=== PATIENT | female | born 1980 | race Caucasian/White ===

== ENCOUNTER 2019-07-31 05:23 | Day surgery (SDC) | payer MEDICAID ==
[2019-07-28 13:05] LABS: BASOPHILS # (AUTO) 0.1 X10'3 (0-0.2); BASOPHILS % (AUTO) 1.3 % (0-1); EOSINOPHILS # (AUTO) 0.2 X10'3 (0-0.9); EOSINOPHILS % (AUTO) 2.5 % (0-6); LYMPHOCYTES # (AUTO) 2.6 X10'3 (1.1-4.8); LYMPHOCYTES % (AUTO) 30.7 % (21-51); MEAN CORPUSCULAR HEMOGLOBIN 30.6 PG (27.0-31.0); MEAN CORPUSCULAR HGB CONC 34.1 g/dL (33.0-36.5); MEAN CORPUSCULAR VOLUME 89.9 FL (78-98); MEAN PLATELET VOLUME 8.6 FL (7.4-10.4); MONOCYTES # (AUTO) 0.8 X10'3 (0-0.9); MONOCYTES % (AUTO) 9.4 % (2-12); NEUTROPHILS # (AUTO) 4.8 X10'3 (1.8-7.7); NEUTROPHILS % (AUTO) 56.1 % (42-75); PRE OP HEMATOCRIT 43.7 % (35.0-45.0); PRE OP HEMOGLOBIN 14.9 g/dL (12.0-16.0); PRE OP PLATELET COUNT 321 X10'3 (140-440); RED BLOOD COUNT 4.86 X10'6 (4.20-5.60)
[2019-07-28 13:13] LABS: CLARITY,URINE CLEAR (Clear); COLOR,URINE YELLOW (Yellow); GLUCOSE, URINE NEGATIVE (Neg); KETONES,URINE NEGATIVE (Neg); LEUKOCYTE ESTERASE ,URINE NEGATIVE (Neg); NITRITES, URINE NEGATIVE (Neg); OCCULT BLOOD,URINE NEGATIVE (Neg); PROTEIN,URINE NEGATIVE (Neg); UROBILINOGEN,URINE 0.2 E.U/dL (0.2-1.0)
[2019-07-28 13:15] LABS: UA COLLECTION TYPE CLN CATCH MIDSTREAM
[2019-07-28 13:19] LABS: ALBUMIN/GLOBULIN RATIO 1.1 (1.1-1.5); ALKALINE PHOSPHATASE 75 IU/L (46-116); BLOOD UREA NITROGEN 10 MG/DL (7-18); BUN/CREATININE RATIO 12.8 (6.6-38.0); CALCIUM 9.4 MG/DL (8.5-10.1); CHLORIDE 105 MMOL/L (99-107); CREATININE 0.78 MG/DL (0.40-0.90); PRE OP ALT 25 U/L (30-65); PRE OP ANION GAP 6 (8-16); PRE OP AST 18 U/L (10-37); PRE OP BILIRUB, TOTAL 0.4 MG/DL (0.0-1.0); PRE OP GLUCOSE 85 MG/DL (70-104); PRE OP POTASSIUM 3.9 MMOL/L (3.4-5.1); PRE OP SODIUM 141 MMOL/L (135-145); TOTAL CARBON DIOXIDE 30.1 MMOL/L (24-32); TOTAL PROTEIN 7.7 G/DL (6.4-8.2); eGFR 81 ML/MIN
[2019-07-28 13:26] LABS: HCG SERUM QL NEGATIVE
[2019-07-31] VITALS (7 sets, daily range): BP systolic 102–132; BP diastolic 49–74
[~2019-07-31] VITALS: Ht 172.7 cm; Wt 85.7 kg
[~2019-07-31 05:23] MED LIST: NO HOME MEDS; ringers solution, lacted 1,000 ML IV SCH
[2019-07-31] MEDS ORDERED: famotidine 10mg tablet PO ONE (05:30)
[2019-07-31] MEDS ORDERED: LIDOcaine 1% (10mg/ml) 2ml vial ONE (05:59)
[2019-07-31] MEDS: vancomycin inj 1,500 MG in normal saline 300ml IV soln IV ONE ×2 (06:19→06:31)
[2019-07-31] MEDS ORDERED: GENTAMICIN IV ONE (06:30)
[2019-07-31] MEDS ORDERED: NORMAL SALINE IV ONE (06:30)
[2019-07-31] MEDS ORDERED: BUPIVAcaine/PF 2.5mg/ml (0.25%) 10ml vial ONE (06:38)
[2019-07-31] MEDS ORDERED: BUPIVAcaine/PF 2.5 mg/ml (0.25%) 30ml vial ONE (06:38)
[2019-07-31] MEDS ORDERED: sevoflurane 250ml liquid IH ONE (07:19)
[2019-07-31] MEDS ORDERED: midazolam 2 mg/2 ml injection ONE (07:24)
[2019-07-31] MEDS ORDERED: fentaNYL/PF 50MCG/1 ML 2ML syringe ONE (07:24)
[2019-07-31] MEDS ORDERED: rocuronium 10mg/ml inj IV ONE (07:25)
[2019-07-31] MEDS ORDERED: propofol inj 20 ML IV ONE (07:25)
[2019-07-31] MEDS ORDERED: meperidine/PF 25mg/ml syringe IV PRN ×3 (07:55)
[2019-07-31] MEDS ORDERED: ringers solution, lacted 1,000 ML IV SCH (07:55)
[2019-07-31] MEDS ORDERED: ondansetron/PF 4mg/2ml inj IV PRN (07:55)
[2019-07-31] MEDS ORDERED: proCHLORperazine 10 MG/2 ml inj IV PRN (07:55)
[2019-07-31] MEDS ORDERED: ketorolac trometh. 30mg/ml inj. IV ONE (07:55)
[2019-07-31] MEDS ORDERED: morphine 4 MG/ML inj SYRINge IV PRN ×2 (07:55)
[2019-07-31] MEDS ORDERED: ondansetron/PF 4mg/2ml inj ONE (07:57)
[2019-07-31] MEDS ORDERED: dexamethasone sod phosphate 4mg/ml inj. ONE (07:57)
[2019-07-31] MEDS ORDERED: neostigmine methylsulfate 1 MG/ML 10ml vial ONE (08:07)
[2019-07-31] MEDS ORDERED: glycopyrrolate 0.2mg/ml inj ONE (08:07)
--- NOTE | 2019-07-31 08:25 | NUR ---
Received from OR via BED, accompanied by Anesthesiologist DR HENDRIX-- and report given by Anesthesiolgist. PATIENT A&OX4, DENIES PAIN, V/S WNL, NEUROVASCULAR CHECKS INTACT, 20G PIV RUE, SCD ON, LAP SITES CDI TO ABDOMEN.
--- NOTE | 2019-07-31 09:15 | NUR ---
PATIENT A&OX4, DENIES PAIN, V/S WNL, NEUROVASCULAR CHECKS INTACT, 20G PIV RUE D/C, SCD OFF, LAP SITES CDI TO ABDOMEN. I HAVE REVIEWED D/C INSTRUCTIONS WITH PATIENT AND FAMILY AND THEY HAVE VERBALIZED UNDERSTANDING. PATIENT D/C HOME WITH ALL BELONGINGS AND FAMILY GAVE TRANSPORT HOME.
== END 2019-07-31 09:15 | disposition home or self-care (01) ==
LOC: PAS 05:23
PROVIDERS: ATTEND Obstetrics & Gynecology Obstetrics
DX: Z30.2 Encounter for sterilization (principal); Z30.432 Encounter for removal of intrauterine contraceptive device; F17.210 Nicotine dependence, cigarettes, uncomplicated; G43.909 Migraine, unspecified, not intractable, without status migrainosus; F32.9 Major depressive disorder, single episode, unspecified; F41.9 Anxiety disorder, unspecified; Z98.890 Other specified postprocedural states; Z79.899 Other long term (current) drug therapy
CPT/HCPCS: 36415; 58301; 58671; 71046; 80053; 81003; 82948; 84703; 85025; 86885; 86900; 86901; 93005; A4264; J1100; J1580; J1885; J2001; J2250; J2405; J2704; J2710; J3010; J3370; J3490; J7120; A4618; A7000